=== PATIENT | male | born 1970 | race African-American/Black ===

== ENCOUNTER 2022-04-15 06:23 | Emergency (ER) | payer OTHER, SELFPAY ==
[2022-04-15] VITALS (15 sets, daily range): BP systolic 155–229; BP diastolic 85–152; PULSE 86–105; RESP 22–26; TEMP 37.1; O2SAT 94–100; BMI 35.6
--- NOTE | 2022-04-15 06:28 | DI.RAD.S_ITS ---
PROCEDURE: XR CHEST 1V INDICATIONS: SOB/Cough TECHNIQUE: One view of the chest was acquired. COMPARISON: None. FINDINGS: Surgical changes and devices: None. Lungs and pleura: Patchy bilateral airspace opacity. No pleural effusions or pneumothorax. Mediastinum: Mediastinal contours appear normal. Heart size is normal. Bones and chest wall: No suspicious bony lesions. Overlying soft tissues appear unremarkable. IMPRESSION: Patchy airspace opacity. This could represent pneumonia or atelectasis. This report is concordant with the overnight preliminary interpretation. Dictated by: Isael Reynolds M.D. on 04/15/2022 at 7:49 Approved by: Isael Reynolds M.D. on 04/15/2022 at 7:51
[2022-04-15 06:36] LABS: Add Manual Diff / Slide Review NO; Basophils Absolute Auto 0 /uL (0-100); Basophils Percent Auto 0.3 % (0-2); Eosinophils Absolute Auto 200 /uL (0-450); Eosinophils Percent Auto 1.6 % (2-4); Hematocrit 42.5 % (41-53); Hemoglobin 13.6 g/dL (13.5-17.5); Lymphocytes Absolute Auto 900 /uL (1100-4500); Lymphocytes Percent Auto 7.6 % (25-40); Mean Corpuscular Volume 90.6 fL (80-100); Monocytes Absolute Auto 700 /uL (0-900); Monocytes Percent Auto 5.9 % (3-14); Neutrophils Absolute Auto 9800 /uL (1500-7000); Neutrophils Percent Auto 84.6 % (50-75); Platelet Count 241 X10^3/uL (150-400); Red Blood Cell Count 4.69 X10^6/uL (4.5-5.9); Red Cell Distribution Width 14.6 % (11.6-14.8); White Blood Cell Count 11.5 X10^3/uL (4.5-11.0)
--- NOTE | 2022-04-15 06:40 | ED.SOB ---
HPI - SOB/Dyspnea <Je Ren DO - Last Filed: 04/17/22 04:31> General Chief Complaint: Shortness of Breath/Dyspnea Stated Complaint: Fatigue/SOB Time Seen by Provider: 04/15/22 06:28 History of Present Illness HPI Narrative: 51-year-old male nonsmoker with history of hypertension presents by EMS for evaluation of upwards of 1 week of shortness of breath and body aches. He is had COVID multiple times and states this feels quite similar though he did a home test that was negative. 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 He did attempt to visit another emergency department in [place] early in the week but was unable to do it as the ship was leaving. He is had runny nose and nasal congestion as well as some sore throat and body aches. He is had subjective fever but nothing measured. He denies any chest pain and though he feels short of breath his oxygen levels have been appropriate. He denies any nausea, vomiting or diarrhea. States that he has hypertension and has not had his medications in at least 2 months. On arrival his blood pressure is in the 210s. He denies headache or blurred vision nor other neurologic signs such as numbness, tingling or weakness Related Data Previous Rx's Medication Instructions Recorded amlodipine 10 mg tablet 10 mg PO DAILY #60 tabs 04/15/22 carvedilol 6.25 mg tablet 6.25 mg PO BID #120 tabs 04/15/22 hydralazine 10 mg tablet 25 mg PO BID #300 tabs 04/15/22 Allergies Allergy/AdvReac Type Severity Reaction Status Date / Time Penicillins Allergy Verified 04/15/22 06:51 Review of Systems <Je Ren DO - Last Filed: 04/17/22 04:31> Review of Systems Narrative: GENERAL: See HPI HEENT: See HPI RESPIRATORY: See HPI CARDIOVASCULAR: Denies chest pain, palpitations, orthopnea, edema, GASTROINTESTINAL: Denies nausea, vomiting, abdominal pain, diarrhea, constipation, melena. : Denies dysuria, frequency, incontinence, hematuria, urinary retention. MUSCULOSKELETAL: See HPI SKIN: Denies rash, skin lesions, or other NEUROLOGIC: Denies weakness, headache, numbness, change in speech, confusion, seizures, incoordination. PSYCHIATRIC: No concerning psychosocial issues. 12 point review of systems is negative except for those stated above Patient History <Je Ren DO - Last Filed: 04/17/22 04:31> Social History Smoking Status: Never smoker Exam <Je Ren DO - Last Filed: 04/17/22 04:31> Narrative Exam Narrative: GENERAL: [51] year old patient appears stated age. Well-developed patient, in mild distress. HEAD: Atraumatic. Normocephalic. EYES: Pupils equal round and reactive. Extraocular motions intact. No scleral icterus. No injection or drainage. ENT: Nose without bleeding, purulent drainage. Throat without erythema, tonsillar hypertrophy or exudate. Airway patent. NECK: Trachea midline. Non tender CARDIOVASCULAR: Regular rate and rhythm without murmurs, gallops, or rubs. RESPIRATORY: Mild expiratory wheeze with decreased breath sounds throughout GASTROINTESTINAL: Abdomen soft, non-tender, nondistended. EXTREMITIES: No edema or joint tenderness. BACK: Nontender without deformity or crepitance. No flank tenderness. NEURO: AOx3. SKIN: No rash or erythema of visible areas Initial Vital Signs Initial Vital Signs: Vital Signs Temperature 98.8 F 04/15/22 06:25 Pulse Rate 92 H 04/15/22 06:25 Respiratory Rate 24 04/15/22 06:25 Blood Pressure 158/90 H 04/15/22 06:25 Pulse Oximetry 98 04/15/22 06:25 Oxygen Delivery Method 04/15/22 06:25 <Manuel Mack DO - Last Filed: 04/15/22 09:43> Initial Vital Signs Initial Vital Signs: Vital Signs Temperature 98.8 F 04/15/22 06:25 Pulse Rate 92 H 04/15/22 06:25 Respiratory Rate 24 04/15/22 06:25 Blood Pressure 158/90 H 04/15/22 06:25 Pulse Oximetry 98 04/15/22 06:25 Oxygen Delivery Method 04/15/22 06:25 Course <Je Ren DO - Last Filed: 04/17/22 04:31> Orders Ordered: Discontinued Medications Furosemide (Furosemide 40 Mg/4 Ml Vial) 40 mg IV NOW ONE Stop: 04/15/22 07:00 Last Admin: 04/15/22 07:24 Dose: 40 mg Documented By: CHERYL Sodium Chloride (Normal Saline 0.9%) 1,000 mls @ 150 mls/hr IV CONT SHAILA Last Admin: 04/15/22 07:24 Dose: 150 mls/hr Documented By: CHERYL Vital Signs Vital signs: Vital Signs - 8 hr 04/15/22 06:25 04/15/22 06:32 04/15/22 07:00 Temperature 98.8 F Pulse Rate 92 H 92 H Respiratory Rate 24 24 Blood Pressure 158/90 H 174/90 H Pulse Oximetry 98 97 Oxygen Delivery Method Room Air 04/15/22 07:00 04/15/22 07:30 04/15/22 07:32 Temperature Pulse Rate 93 H 92 H Respiratory Rate 24 Blood Pressure 174/101 H Pulse Oximetry 100 100 Oxygen Delivery Method 04/15/22 07:32 04/15/22 07:47 04/15/22 07:47 Temperature Pulse Rate 95 H 104 H Respiratory Rate 26 H 25 H Blood Pressure 175/103 H Pulse Oximetry 95 94 Oxygen Delivery Method 04/15/22 08:00 04/15/22 08:01 04/15/22 08:01 Temperature Pulse Rate 95 H 94 H Respiratory Rate 24 24 Blood Pressure 155/85 H Pulse Oximetry 94 96 Oxygen Delivery Method 04/15/22 08:30 04/15/22 08:31 04/15/22 08:31 Temperature Pulse Rate 88 86 Respiratory Rate 24 24 Blood Pressure 168/97 H Pulse Oximetry 94 94 Oxygen Delivery Method 04/15/22 09:00 04/15/22 09:00 Temperature Pulse Rate 92 H Respiratory Rate 23 Blood Pressure 172/86 H Pulse Oximetry 94 Oxygen Delivery Method <Manuel Mack DO - Last Filed: 04/15/22 09:43> Orders Ordered: Discontinued Medications Furosemide (Furosemide 40 Mg/4 Ml Vial) 40 mg IV NOW ONE Stop: 04/15/22 07:00 Last Admin: 04/15/22 07:24 Dose: 40 mg Documented By: CHERYL Sodium Chloride (Normal Saline 0.9%) 1,000 mls @ 150 mls/hr IV CONT SHAILA Last Admin: 04/15/22 07:24 Dose: 150 mls/hr Documented By: CHERYL Vital Signs Vital signs: Vital Signs - 8 hr 04/15/22 06:25 04/15/22 06:32 04/15/22 07:00 Temperature 98.8 F Pulse Rate 92 H 92 H Respiratory Rate 24 24 Blood Pressure 158/90 H 174/90 H Pulse Oximetry 98 97 Oxygen Delivery Method Room Air 04/15/22 07:00 04/15/22 07:30 04/15/22 07:32 Temperature Pulse Rate 93 H 92 H Respiratory Rate 24 Blood Pressure 174/101 H Pulse Oximetry 100 100 Oxygen Delivery Method 04/15/22 07:32 04/15/22 07:47 04/15/22 07:47 Temperature Pulse Rate 95 H 104 H Respiratory Rate 26 H 25 H Blood Pressure 175/103 H Pulse Oximetry 95 94 Oxygen Delivery Method 04/15/22 08:00 04/15/22 08:01 04/15/22 08:01 Temperature Pulse Rate 95 H 94 H Respiratory Rate 24 24 Blood Pressure 155/85 H Pulse Oximetry 94 96 Oxygen Delivery Method 04/15/22 08:30 04/15/22 08:31 04/15/22 08:31 Temperature Pulse Rate 88 86 Respiratory Rate 24 24 Blood Pressure 168/97 H Pulse Oximetry 94 94 Oxygen Delivery Method 04/15/22 09:00 04/15/22 09:00 Temperature Pulse Rate 92 H Respiratory Rate 23 Blood Pressure 172/86 H Pulse Oximetry 94 Oxygen Delivery Method MDM - SOB/Dyspnea <Je Ren, - Last Filed: 04/17/22 04:31> Lab Data Result diagrams: 04/15/22 06:10 04/15/22 06:10 Labs: Lab Results 04/15/22 04/15/22 04/15/22 Range/Units 06:10 06:10 06:10 WBC 11.5 H (4.5-11.0) X10^3/uL RBC 4.69 (4.5-5.9) X10^6/uL Hgb 13.6 (13.5-17.5) g/dL Hct 42.5 (41-53) % MCV 90.6 (80-100) fL MCH 29.0 (26-34) PG MCHC 32.0 (30-36) % RDW 14.6 (11.6-14.8) % Plt Count 241 (150-400) X10^3/uL Neut % (Auto) 84.6 H (50-75) % Lymph % (Auto) 7.6 L (25-40) % [place] % (Auto) 5.9 (3-14) % Eos % (Auto) 1.6 L (2-4) % Baso % (Auto) 0.3 (0-2) % Neut # (Auto) 9800 H (8110-6599) /uL Lymph # (Auto) 900 L (8496-4346) /uL [place] # (Auto) 700 (0-900) /uL Eos # (Auto) 200 (0-450) /uL Baso # (Auto) 0 (0-100) /uL D-Dimer 982 H (<500) ng/ml Sodium 141 (137-145) mmol/L Potassium 4.5 (3.4-5.1) mmol/L Chloride 108 H (98-107) mmol/L Carbon Dioxide 24 (22-32) mmol/L BUN 29 H (9-20) mg/dL Creatinine 2.52 H (0.66-1.25) mg/dL Estimated GFR 30 L (>60) mL/min BUN/Creatinine Ratio 11.5 (6-22) Glucose 131 H (70-100) mg/dL Calcium 9.0 (8.4-10.2) mg/dL Total Bilirubin 0.7 (0.2-1.3) mg/dL AST 33 (17-59) IU/L ALT 31 (<50) IU/L Alkaline Phosphatase 74 (38-126) U/L Total Creatine Kinase 295 H (55-170) U/L CK-MB (CK-2) 2.76 H (<2.37) ng/mL CK-MB (CK-2) Rel Index 0.9 L (1.5-5.0) % Troponin I 0.046 H (0.01-0.034) ng/mL NT-Pro-B Natriuret Pep (<125) pg/mL Total Protein 7.9 (6.3-8.2) g/dL Albumin 4.3 (3.5-5.0) g/dL Globulin 3.6 (1.7-4.1) g/dL Albumin/Globulin Ratio 1.2 (1.0-2.8) Lipase 200 (23-300) U/L Procalcitonin 0.14 (<0.5) ng/mL Chlamy pneumoniae PCR (Not Detect) Adenovirus (PCR) (Not Detect) B. pertussis DNA (PCR) (Not Detecte) B.parapertussis DNA PCR (Not Detecte) Coronavirus OC43 (PCR) (Not Detect) Coronavirus HKU1 (PCR) (Not Detect) Coronavirus 229E (PCR) (Not Detect) SARS-CoV-2 (PCR) (Not Detecte) Coronavirus NL63 (PCR) (Not Detect) Human Metapneumovir PCR (Not Detect) Influenza Type A (PCR) (Not Detect) Influenza Type B (PCR) (Not Detect) M. pneumoniae (PCR) (Not Detect) Parainfluenza 1 (PCR) (Not Detect) Parainfluenza 2 (PCR) (Not Detect) Parainfluenza 3 (PCR) (Not Detect) Parainfluenza 4 (PCR) (Not Detect) RSV (PCR) (Not Detect) Entero/Rhino (PCR) (Not Detect) 04/15/22 04/15/22 04/15/22 Range/Units 06:10 06:25 08:20 WBC (4.5-11.0) X10^3/uL RBC (4.5-5.9) X10^6/uL Hgb (13.5-17.5) g/dL Hct (41-53) % MCV (80-100) fL MCH (26-34) PG MCHC (30-36) % RDW (11.6-14.8) % Plt Count (150-400) X10^3/uL Neut % (Auto) (50-75) % Lymph % (Auto) (25-40) % [place] % (Auto) (3-14) % Eos % (Auto) (2-4) % Baso % (Auto) (0-2) % Neut # (Auto) (9640-4156) /uL Lymph # (Auto) (1132-1625) /uL [place] # (Auto) (0-900) /uL Eos # (Auto) (0-450) /uL Baso # (Auto) (0-100) /uL D-Dimer (<500) ng/ml Sodium (137-145) mmol/L Potassium (3.4-5.1) mmol/L Chloride (98-107) mmol/L Carbon Dioxide (22-32) mmol/L BUN (9-20) mg/dL Creatinine (0.66-1.25) mg/dL Estimated GFR (>60) mL/min BUN/Creatinine Ratio (6-22) Glucose (70-100) mg/dL Calcium (8.4-10.2) mg/dL Total Bilirubin (0.2-1.3) mg/dL AST (17-59) IU/L ALT (<50) IU/L Alkaline Phosphatase (38-126) U/L Total Creatine Kinase (55-170) U/L CK-MB (CK-2) (<2.37) ng/mL CK-MB (CK-2) Rel Index (1.5-5.0) % Troponin I 0.046 H (0.01-0.034) ng/mL NT-Pro-B Natriuret Pep 3290 H (<125) pg/mL Total Protein (6.3-8.2) g/dL Albumin (3.5-5.0) g/dL Globulin (1.7-4.1) g/dL Albumin/Globulin Ratio (1.0-2.8) Lipase (23-300) U/L Procalcitonin (<0.5) ng/mL Chlamy pneumoniae PCR Not detected (Not Detect) Adenovirus (PCR) Not detected (Not Detect) B. pertussis DNA (PCR) Not detected (Not Detecte) B.parapertussis DNA PCR Not detected (Not Detecte) Coronavirus OC43 (PCR) Not detected (Not Detect) Coronavirus HKU1 (PCR) Not detected (Not Detect) Coronavirus 229E (PCR) Not detected (Not Detect) SARS-CoV-2 (PCR) Not detected (Not Detecte) Coronavirus NL63 (PCR) Not detected (Not Detect) Human Metapneumovir PCR Not detected (Not Detect) Influenza Type A (PCR) Not detected (Not Detect) Influenza Type B (PCR) Not detected (Not Detect) M. pneumoniae (PCR) Not detected (Not Detect) Parainfluenza 1 (PCR) Not detected (Not Detect) Parainfluenza 2 (PCR) Not detected (Not Detect) Parainfluenza 3 (PCR) Not detected (Not Detect) Parainfluenza 4 (PCR) Not detected (Not Detect) RSV (PCR) Not detected (Not Detect) Entero/Rhino (PCR) Detected H (Not Detect) <Manuel Mack DO - Last Filed: 04/15/22 09:43> Lab Data Attestation: I reviewed the patient's lab results. Labs: Lab Results 04/15/22 04/15/22 04/15/22 Range/Units 06:10 06:10 06:10 WBC 11.5 H (4.5-11.0) X10^3/uL RBC 4.69 (4.5-5.9) X10^6/uL Hgb 13.6 (13.5-17.5) g/dL Hct 42.5 (41-53) % MCV 90.6 (80-100) fL MCH 29.0 (26-34) PG MCHC 32.0 (30-36) % RDW 14.6 (11.6-14.8) % Plt Count 241 (150-400) X10^3/uL Neut % (Auto) 84.6 H (50-75) % Lymph % (Auto) 7.6 L (25-40) % [place] % (Auto) 5.9 (3-14) % Eos % (Auto) 1.6 L (2-4) % Baso % (Auto) 0.3 (0-2) % Neut # (Auto) 9800 H (0047-2924) /uL Lymph # (Auto) 900 L (7564-8180) /uL [place] # (Auto) 700 (0-900) /uL Eos # (Auto) 200 (0-450) /uL Baso # (Auto) 0 (0-100) /uL D-Dimer 982 H (<500) ng/ml Sodium 141 (137-145) mmol/L Potassium 4.5 (3.4-5.1) mmol/L Chloride 108 H (98-107) mmol/L Carbon Dioxide 24 (22-32) mmol/L BUN 29 H (9-20) mg/dL Creatinine 2.52 H (0.66-1.25) mg/dL Estimated GFR 30 L (>60) mL/min BUN/Creatinine Ratio 11.5 (6-22) Glucose 131 H (70-100) mg/dL Calcium 9.0 (8.4-10.2) mg/dL Total Bilirubin 0.7 (0.2-1.3) mg/dL AST 33 (17-59) IU/L ALT 31 (<50) IU/L Alkaline Phosphatase 74 (38-126) U/L Total Creatine Kinase 295 H (55-170) U/L CK-MB (CK-2) 2.76 H (<2.37) ng/mL CK-MB (CK-2) Rel Index 0.9 L (1.5-5.0) % Troponin I 0.046 H (0.01-0.034) ng/mL NT-Pro-B Natriuret Pep (<125) pg/mL Total Protein 7.9 (6.3-8.2) g/dL Albumin 4.3 (3.5-5.0) g/dL Globulin 3.6 (1.7-4.1) g/dL Albumin/Globulin Ratio 1.2 (1.0-2.8) Lipase 200 (23-300) U/L Procalcitonin 0.14 (<0.5) ng/mL Chlamy pneumoniae PCR (Not Detect) Adenovirus (PCR) (Not Detect) B. pertussis DNA (PCR) (Not Detecte) B.parapertussis DNA PCR (Not Detecte) Coronavirus OC43 (PCR) (Not Detect) Coronavirus HKU1 (PCR) (Not Detect) Coronavirus 229E (PCR) (Not Detect) SARS-CoV-2 (PCR) (Not Detecte) Coronavirus NL63 (PCR) (Not Detect) Human Metapneumovir PCR (Not Detect) Influenza Type A (PCR) (Not Detect) Influenza Type B (PCR) (Not Detect) M. pneumoniae (PCR) (Not Detect) Parainfluenza 1 (PCR) (Not Detect) Parainfluenza 2 (PCR) (Not Detect) Parainfluenza 3 (PCR) (Not Detect) Parainfluenza 4 (PCR) (Not Detect) RSV (PCR) (Not Detect) Entero/Rhino (PCR) (Not Detect) 04/15/22 04/15/22 04/15/22 Range/Units 06:10 06:25 08:20 WBC (4.5-11.0) X10^3/uL RBC (4.5-5.9) X10^6/uL Hgb (13.5-17.5) g/dL Hct (41-53) % MCV (80-100) fL MCH (26-34) PG MCHC (30-36) % RDW (11.6-14.8) % Plt Count (150-400) X10^3/uL Neut % (Auto) (50-75) % Lymph % (Auto) (25-40) % [place] % (Auto) (3-14) % Eos % (Auto) (2-4) % Baso % (Auto) (0-2) % Neut # (Auto) (9250-0059) /uL Lymph # (Auto) (3199-7317) /uL [place] # (Auto) (0-900) /uL Eos # (Auto) (0-450) /uL Baso # (Auto) (0-100) /uL D-Dimer (<500) ng/ml Sodium (137-145) mmol/L Potassium (3.4-5.1) mmol/L Chloride (98-107) mmol/L Carbon Dioxide (22-32) mmol/L BUN (9-20) mg/dL Creatinine (0.66-1.25) mg/dL Estimated GFR (>60) mL/min BUN/Creatinine Ratio (6-22) Glucose (70-100) mg/dL Calcium (8.4-10.2) mg/dL Total Bilirubin (0.2-1.3) mg/dL AST (17-59) IU/L ALT (<50) IU/L Alkaline Phosphatase (38-126) U/L Total Creatine Kinase (55-170) U/L CK-MB (CK-2) (<2.37) ng/mL CK-MB (CK-2) Rel Index (1.5-5.0) % Troponin I 0.046 H (0.01-0.034) ng/mL NT-Pro-B Natriuret Pep 3290 H (<125) pg/mL Total Protein (6.3-8.2) g/dL Albumin (3.5-5.0) g/dL Globulin (1.7-4.1) g/dL Albumin/Globulin Ratio (1.0-2.8) Lipase (23-300) U/L Procalcitonin (<0.5) ng/mL Chlamy pneumoniae PCR Not detected (Not Detect) Adenovirus (PCR) Not detected (Not Detect) B. pertussis DNA (PCR) Not detected (Not Detecte) B.parapertussis DNA PCR Not detected (Not Detecte) Coronavirus OC43 (PCR) Not detected (Not Detect) Coronavirus HKU1 (PCR) Not detected (Not Detect) Coronavirus 229E (PCR) Not detected (Not Detect) SARS-CoV-2 (PCR) Not detected (Not Detecte) Coronavirus NL63 (PCR) Not detected (Not Detect) Human Metapneumovir PCR Not detected (Not Detect) Influenza Type A (PCR) Not detected (Not Detect) Influenza Type B (PCR) Not detected (Not Detect) M. pneumoniae (PCR) Not detected (Not Detect) Parainfluenza 1 (PCR) Not detected (Not Detect) Parainfluenza 2 (PCR) Not detected (Not Detect) Parainfluenza 3 (PCR) Not detected (Not Detect) Parainfluenza 4 (PCR) Not detected (Not Detect) RSV (PCR) Not detected (Not Detect) Entero/Rhino (PCR) Detected H (Not Detect) Imaging Data CT scan - chest: Radiologist's Impression: [place] [address] CT Scan Report Signed Patient: Kashmir Elias MR#: [id number] : 1970 Acct:[id number] Age/Sex: 51 / M Date of Service: 04/15/22 Loc: Accession Number: [id number] ?? Procedure: CT angio chest PE protocol Ordering Provider: Manuel Mack D.O. PROCEDURE:? CT ANGIO CHEST PE PROTOCOL ? INDICATIONS:? SOB, chest pain, ? TECHNIQUE:? After the administration of intravenous contrast, 2 mm thick sections acquired from the pulmonary apices to the posterior costophrenic angles.? 3-dimensional maximum intensity projection (MIP) coronal and sagittal reformats were then acquired through the thorax.? For radiation dose reduction, the following was used:? automated exposure control, adjustment of mA and/or kV according to patient size.? ? COMPARISON:? None. ? FINDINGS:? Image quality:? Excellent.? ? Pulmonary arteries:? Pulmonary arteries are normal in size, and demonstrate no intraluminal filling defects to suggest central pulmonary embolism.? ? Lungs and pleura:? Trace bilateral pleural effusions are seen with mild atelectasis of the adjacent lung bases.? No acute pulmonary consolidation.? A calcified granuloma is seen at the left lung base.? No pneumothorax.? Central and peripheral airways are patent. ? ? Mediastinum:? Heart size is normal, without pericardial effusion.? No mediastinal or hilar adenopathy.? A few small calcified hilar and mediastinal lymph nodes are most likely secondary to prior granulomatous disease.? Thoracic aorta is normal in caliber and enhancement.? Esophagus is normal in caliber, without hiatal hernia.? ? Bones and chest wall:? No suspicious bony lesions.? Mild degenerative changes are seen in the spine.? Thyroid is unremarkable.? No axillary or supraclavicular adenopathy.? ? Abdomen:? Visualized upper abdominal solid organs appear normal in the early arterial phase of enhancement.? ? IMPRESSION:? 1. No acute pulmonary embolus. 2. Trace bilateral pleural effusions. No focal consolidation.? ? Dictated by: Feliberto Clark M.D. on 04/15/2022 at 8:08 ? ? Approved by: Feliberto Clark M.D. on 04/15/2022 at 8:14?? Chest x-ray: Radiologist's Impression: [place] [address] XRay Report Signed Patient: Kashmir Elias MR#: [id number] : 1970 Acct:[id number] Age/Sex: 51 / M Date of Service: 04/15/22 Loc: ED Accession Number: [id number] ?? Procedure: XR chest 1V Ordering Provider: Je Ren D.O. PROCEDURE:? XR CHEST 1V ? INDICATIONS:? SOB/Cough ? TECHNIQUE:? One view of the chest was acquired.? ? COMPARISON:? None. ? FINDINGS:? ? Surgical changes and devices:? None.? ? Lungs and pleura:? Patchy bilateral airspace opacity.? No pleural effusions or pneumothorax.? ? Mediastinum:? Mediastinal contours appear normal.? Heart size is normal.? ? Bones and chest wall:? No suspicious bony lesions.? Overlying soft tissues appear unremarkable.? ? IMPRESSION:? Patchy airspace opacity. This could represent pneumonia or atelectasis. ? This report is concordant with the overnight preliminary interpretation.? ? Dictated by: Isael Reynolds M.D. on 04/15/2022 at 7:49 ? ? Approved by: Isael Reynolds M.D. on 04/15/2022 at 7:51?? MDM Narrative Medical decision making narrative: Dr Mack: Received turned over. Review patient's history and physical and workup up to this point. Patient did have an elevated troponin but repeat shows that this is unchanged. Given his kidney function and lack of chest pain and other findings I feel that this is not in acute ACS/ischemia. His D-dimer was elevated. Given his chest x-ray finding and the fact that he has spent some time immobile recently a CT scan of his chest was ordered. No pulmonary embolism and no signs of pneumonia. Respiratory panel is positive for rhino virus which very well could be the cause of his presenting symptoms along with his hypertension. He did diurese after Lasix. He is in no respiratory distress. No hypoxia. Patient does have a history of high blood pressure. 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 He does not know what medicines that he takes. He does feel his prescriptions at [facility] and [place]. I contacted the local [facility] which had amlodipine and carvedilol and hydralazine has prescriptions for him. Patient states that he thought that these were correct. These were refilled for him to garbage pick up man at the local [facility]. He was given return precautions and follow-up instructions. He expressed understanding and agreement. Discharge Plan Departure Patient Disposition: Home Clinical Impression: Hypertension, Rhinovirus infection Instructions: High Blood Pressure, DI for Viral Upper Respiratory Infection -- Adult Activity Restrictions/Additional Instructions: A prescription for the blood pressure medications that [facility] had on file for you were sent to the [facility] here locally. I recommend that you pick them up and start taking them as directed. You were also positive for what is called rhino virus. This is a common upper respiratory virus that is self-limited and does not require any antibiotics. You can take Tylenol for any body aches. Be sure that you are staying hydrated. I suspect that you will be improved in the next 3-5 days however I do recommend that you have limited contact with other individuals on the cruise ship as this is an infection that can be spread. Return to the emergency department for any new or worsening symptoms. Prescriptions: New amlodipine 10 mg tablet 10 mg PO DAILY Qty: 60 0RF hydralazine 10 mg tablet 25 mg PO BID Qty: 300 0RF carvedilol 6.25 mg tablet 6.25 mg PO BID Qty: 120 0RF Rx Instructions: must administer with a meal/food Referrals: Miscellaneous,Doctor, MD [Primary Care Provider] - Stand Alone Forms: Work Release Note Visit Report Forms: Patient Portal/API
[2022-04-15 06:43] LABS: Alanine Aminotransferase 31 IU/L (<50); Albumin 4.3 g/dL (3.5-5.0); Albumin Globulin Ratio 1.2 (1.0-2.8); Alkaline Phosphatase 74 U/L (38-126); Aspartate Aminotransferase 33 IU/L (17-59); BUN Creatinine Ratio 11.5 (6-22); Bilirubin Total 0.7 mg/dL (0.2-1.3); Blood Urea Nitrogen 29 mg/dL (9-20); Carbon Dioxide 24 mmol/L (22-32); Chloride 108 mmol/L (98-107); Creatine Kinase 295 U/L (55-170); Estimated Glomerular Filt Rate 30 mL/min (>60); Globulin 3.6 g/dL (1.7-4.1); Glucose 131 mg/dL (70-100); HEMOLYSIS 27 (0-50); Lipase 200 U/L (23-300); Potassium 4.5 mmol/L (3.4-5.1); Sodium 141 mmol/L (137-145); Total Protein 7.9 g/dL (6.3-8.2)
[2022-04-15 06:52] LABS: NT-proBNP (BNP-Adult 18+) 3290 pg/mL (<125)
[2022-04-15 06:55] LABS: D Dimer 982 ng/ml (<500)
[2022-04-15 06:56] LABS: Troponin I 0.046 ng/mL (0.01-0.034)
[2022-04-15 06:59] LABS: CKMB % Relative Index 0.9 % (1.5-5.0); Creatine Kinase MB 2.76 ng/mL (<2.37)
[2022-04-15 07:01] LABS: Procalcitonin 0.14 ng/mL (<0.5)
--- NOTE | 2022-04-15 07:22 | DI.CT.S_ITS ---
PROCEDURE: CT ANGIO CHEST PE PROTOCOL INDICATIONS: SOB, chest pain, TECHNIQUE: After the administration of intravenous contrast, 2 mm thick sections acquired from the pulmonary apices to the posterior costophrenic angles. 3-dimensional maximum intensity projection (MIP) coronal and sagittal reformats were then acquired through the thorax. For radiation dose reduction, the following was used: automated exposure control, adjustment of mA and/or kV according to patient size. COMPARISON: None. FINDINGS: Image quality: Excellent. Pulmonary arteries: Pulmonary arteries are normal in size, and demonstrate no intraluminal filling defects to suggest central pulmonary embolism. Lungs and pleura: Trace bilateral pleural effusions are seen with mild atelectasis of the adjacent lung bases. No acute pulmonary consolidation. A calcified granuloma is seen at the left lung base. No pneumothorax. Central and peripheral airways are patent. Mediastinum: Heart size is normal, without pericardial effusion. No mediastinal or hilar adenopathy. A few small calcified hilar and mediastinal lymph nodes are most likely secondary to prior granulomatous disease. Thoracic aorta is normal in caliber and enhancement. Esophagus is normal in caliber, without hiatal hernia. Bones and chest wall: No suspicious bony lesions. Mild degenerative changes are seen in the spine. Thyroid is unremarkable. No axillary or supraclavicular adenopathy. Abdomen: Visualized upper abdominal solid organs appear normal in the early arterial phase of enhancement. IMPRESSION: 1. No acute pulmonary embolus. 2. Trace bilateral pleural effusions. No focal consolidation. Dictated by: Feliberto Clark M.D. on 04/15/2022 at 8:08 Approved by: Feliberto Clark M.D. on 04/15/2022 at 8:14
[2022-04-15] MEDS: SODIUM CHLORIDE 0.9% 1,000 ML 150 ML IV (07:24)
[2022-04-15] MEDS: FUROSEMIDE 40 MG/4 ML VIAL IV (07:24)
[2022-04-15 07:33] LABS: Adenovirus Not Detected (Not Detect); B. parapertussis Not Detected (Not Detecte); Bordetella pertussis Not Detected (Not Detecte); Chlamydophila pneumoniae Not Detected (Not Detect); Coronavirus 229E Not Detected (Not Detect); Coronavirus HKU1 Not Detected (Not Detect); Coronavirus NL 63 Not Detected (Not Detect); Coronavirus OC43 Not Detected (Not Detect); Human Metapneumovirus Not Detected (Not Detect); Human Rhinovirus/Enterovirus Detected (Not Detect); Influenza A Not Detected (Not Detect); Influenza B Not Detected (Not Detect); Mycoplasma pneumoniae Not Detected (Not Detect); Parainfluenza Virus 1 Not Detected (Not Detect); Parainfluenza Virus 2 Not Detected (Not Detect); Parainfluenza Virus 3 Not Detected (Not Detect); Parainfluenza Virus 4 Not Detected (Not Detect); Respiratory Syncytial Virus Not Detected (Not Detect); SARS- CoV-2 Not Detected (Not Detecte)
[2022-04-15 09:05] LABS: Troponin I 0.046 ng/mL (0.01-0.034)
== END 2022-04-15 10:23 | disposition home or self-care (01) ==
PROVIDERS: Emergency Medicine; Emergency Provider Emergency Medicine
DX: I10 Essential (primary) hypertension (principal); B34.8 Other viral infections of unspecified site; R07.9 Chest pain, unspecified; Z86.16 Personal history of COVID-19; Z20.822 Contact with and (suspected) exposure to COVID-19
CPT/HCPCS: 36415; 71045; 71275; 80053; 82550; 82553; 83690; 83880; 84145; 84484; 85025; 85379; 87633; 93005; 93010; 96374; 99284; J1940; Q9967